=== PATIENT | female | born 1945 | race Caucasian/White ===

== ENCOUNTER 2017-01-11 09:53 | Emergency (ER) | payer MEDICARE ==
[2009-10-13 12:09] VITALS: BMI 22.0
== END 2017-01-11 11:59 | disposition home or self-care (01) ==
LOC: D.ER 09:53
DX: I10 Essential (primary) hypertension (principal)

== ENCOUNTER → 2017-01-15 14:39 | Outpatient (CLI) | payer MEDICARE ==
[2009-10-13 12:09] VITALS: BMI 22.0
== END | disposition home or self-care (01) ==
LOC: D.US 14:39
DX: N64.9 Disorder of breast, unspecified (principal)

== ENCOUNTER → 2017-02-06 14:21 | Outpatient (CLI) | payer MEDICARE ==
[2009-10-13 12:09] VITALS: BMI 22.0
== END | disposition home or self-care (01) ==
LOC: D.CT 14:21
DX: R51 Headache (principal)

== ENCOUNTER 2017-11-05 05:40 | Day surgery (SDC) | payer MEDICARE ==
[~2017-11-05] VITALS: Ht 172.7 cm; Wt 99.1 kg
--- NOTE | ~2017-11-05 | OP ---
PATIENT NAME: TIMOTHY MEDINA MEDICAL RECORD: [id number] :43 LOCATION:D.OPS ADMISSION DATE: SURGEON: EN CISNEROS MD DATE OF OPERATION: 11/05/2017 PREOPERATIVE DIAGNOSES: 1. Brito's esophagus. 2. Dysphagia. 3. History of autoimmune problems. 4. Melena. 5. History of colon polyps. POSTOPERATIVE DIAGNOSES: 1. Brito's esophagus. 2. Dysphagia. 3. History of autoimmune problems. 4. Melena. 5. History of colon polyps. 6. Panesophagitis, moderate with some exudate. 7. Moderately sized hiatal hernia. 8. Normal stomach otherwise. 9. Normal duodenum. 10. Bleeding after esophageal dilation with significant reflux into the oropharynx. We were concerned that she could not protect her airway and for this reason, we abandoned the colonoscopy. PROCEDURE: 1. Esophagogastroduodenoscopy with antral and distal esophageal biopsies. 2. Esophageal dilation through the catheter balloon to 54-Spanish. SURGEON: En Cisneros MD TOILET ATTENDANT: None. BLOOD LOSS: 50 cc. ANESTHESIA: Topical with IV sedation. The reason for the anesthesia staff being present during the procedure includes the need for airway manipulation, which was necessary during the procedure. The risks, possible complications, and alternatives to the procedure were explained to the patient. She elects to proceed. ENDOSCOPIC COURSE: The patient was conveyed to the endoscopy suite electively on 11/05/2017. A topical anesthetic was sprayed into the oropharynx. A bite block was inserted. IV sedation was induced. A gastroscope was inserted into the mouth. It was advanced easily into the hypopharynx. The esophagus was easily intubated as were the stomach and the duodenum. Upon withdrawal, retroflexed and angulus views were obtained. Antral biopsies were obtained. I then advanced a through the catheter balloon. I sequentially dilated the entire length of the esophagus to 54-Spanish. The balloon dilator was removed. I then re-endoscoped the patient's esophagus and stomach. There had been no evidence of false passage or perforation. There was significant bleeding, however. Distal esophageal biopsies were obtained at the Z-line due to the patient's OPERATIVE REPORT [id number] TIMOTHY MEDINA history of Brito esophagus. I then slowly withdrew the endoscope. I irrigated and aspirated blood clots. I then aspirated some additional blood in the oropharynx. We are setting up for the colonoscopy and I collaborated with the COMM[employer]ITY [employer] WORKER, Mervin Marrufo. He was worried that due to the amount of blood that was refluxing up into the oropharynx that she might develop an airway problem and might aspirate. He recommended that we discontinue the procedure and do the colonoscopy on another day. TRANSINT:[id number] Voice Confirmation ID: [id number] DOCUMENT ID: [id number] EN CISNEROS MD at 1022 CC: ANGELITA Garay MD [id number] DICTATION DATE: 11/05/17916 CALIBRATION CHECKER: 11/05/17 1150 [facility] 11/05/[address] [facility] [address] [place] [address]
[2017-11-05 06:19] LABS: BASOPHILS 0.6 % (0-2); EOSINOPHILS 4.8 % (0-7); HEMATOCRIT 46.1 % (36.0-48.0); HEMOGLOBIN 15.2 g/dL (12-16); IMMATURE GRANULOCYTES 0.2 % (0-5); LYMPHOCYTES 17.9 % (15-50); MCH 30.9 pg (26.0-34.0); MCV 93.7 fL (80.0-100.0); MEAN PLATELET VOLUME 10.3 fL (7.4-10.4); MONOCYTES 9.4 % (2-11); NEUTROPHILS 67.1 % (40-80); PLATELET COUNT 176 10x3/uL (130-400); RBC 4.92 10x6/uL (4.00-5.40); RDW 14.6 % (11.5-14.5); WBC 6.5 10x3/uL (4.8-10.8)
[2017-11-05 06:34] LABS: APTT 26.2 SECONDS (22.8-39.4); INR 0.96 (0.85-1.17); PROTIME 12.4 SECONDS (11.6-15.0)
[2017-11-05] MEDS ORDERED: KLONOPIN1 MG PO (06:34)
[2017-11-05] MEDS ORDERED: NEURONTIN 300300 MG PO (06:35)
[2017-11-05 06:36] LABS: ALBUMIN 3.6 g/dL (3.4-5.0); BILIRUBIN - TOTAL 0.72 mg/dL (0.2-1.3); CALCIUM 9.2 mg/dL (8.5-10.1); CARBON DIOXIDE 29.4 mmol/L (21.0-32.0); CREATININE - SERUM 0.8 mg/dL (0.6-1.3); POTASSIUM - SERUM 4.4 mmol/L (3.5-5.1); PROTEIN - SERUM 6.9 g/dL (6.4-8.2)
[2017-11-05] MEDS ORDERED: ARMOUR THYROID90 MG PO (06:38)
[2017-11-05 06:51] VITALS: Ht 172.7 cm; Wt 99.1 kg
== END 2017-11-05 13:15 | disposition home or self-care (01) ==
LOC: D.OPS 05:40
PROVIDERS: Anesthesiology
DX: K22.719 Barrett's esophagus with dysplasia, unspecified (principal); K44.9 Diaphragmatic hernia without obstruction or gangrene; K20.8 Other esophagitis

== ENCOUNTER → 2018-03-06 15:29 | Outpatient (CLI) | payer MEDICARE ==
[2017-11-05 06:51] VITALS: BMI 33.2
[~2018-03-06 15:29] MED LIST: ARMOUR THYROID90 MG PO; KLONOPIN1 MG PO; NEURONTIN 300300 MG PO
== END | disposition home or self-care (01) ==
LOC: D.MRI 15:29
DX: M54.5 Low back pain (principal)

== ENCOUNTER → 2020-06-21 10:49 | Outpatient (CLI) | payer MEDICARE ==
[2017-11-05 06:51] VITALS: BMI 33.2
--- NOTE | ~2020-06-21 | HEMODYNAMI ---
PATIENT:TIMOTHY MEDINA MEDICAL RECORD: [id number] : 43 LOCATION:[facility] ADMISSION DATE: 06/21/20 Generatedon:112:26 Patient name: TIMOTHY MEDINA Patient #: [id number] SSN: D OB: 1945 Date of study: 06/21/2020 Page: Of Hemodynamic Procedure Report Patient Data Patient Demographics Procedure consent was obtained First Name: TIMOTHY Gender: Female Last Name: CAROL : 1945 Middle Initial: N Age: 74 year(s) Patient #: [id number] Race: Unknown Additional ID: [id number] Contact details Address: [address] [place] [address] State: [place] City: [place] Zip code: [address] Past Medical History Allergies Allergen Reaction Date Comments Reported Percocet 06/21/2020 Admission Admission Data Admission Date: 06/21/2020 Admission Time: 10:49 Procedure Procedure Types Cath Procedure Peripheral Cath Diagnostic Procedure Miscellaneous Procedure Description Procedure Date Procedure Date: 06/21/2020 Procedure Start Time: 12:16 Procedure End Time: 12:25 Procedure Staff Name Function Kody Singer MD Performing Physician Christian Godinez RT Monitor JENNIFER GIBBONS Scrub Procedure Data Cath Procedure Fluoroscopy Diagnostic fluoroscopy Total fluoroscopy Time: 0.6 time: 0.6 min min Diagnostic fluoroscopy Total fluoroscopy dose: 40 dose: 40 mGy mGy Contrast Material Contrast Material Type Amount (ml) Isovue 200 6 Hemodynamics Rest Pre Cath Intra NCS Post Cath Procedure Log Time Note 11:58:33 Christian Godinez RT (R) (CV) sent for patient. Start room use. 11:58:34 Time tracking: Regular hours (M-F 7:00 - 5:00) 11:58:39 Patient received from Other to IR Alert and oriented. Tansferred to table in Supine position. 11:58:41 Signed procedure consent form obtained from patient. 11:58:41 Warm blankets applied, and miles hugger turned on for patient comfort. 11:58:42 Correct patient and procedure confirmed by team. 11:58:44 - 11:58:45 Pre-procedure instructions explained to patient. 11:58:46 Pre-op teaching completed and patient verbalized understanding. 12:00:03 Patient allergic to Percocet 12:00:07 Is patient on blood thinner?No 12:00:41 Left Hip was prepped with betadine and draped in sterile fashion. 12:00:54 - 12:05:26 SAFE-T PLUS MYELOGRAM TRAY opened to sterile field. 12:11:04 Physician paged 12:14:01 Physician arrived 12:14:49 --------ALL STOP TIME OUT------ 12:14:49 Final Timeout: patient, procedure, and site verified with staff and physician. All members of the team are in agreement. 12:14:52 Left groin site verified by team. 12:15:33 Procedure started. 12:15:33 Full Disclosure recording started 12:16:29 Local anesthetic to Left Hip with Lidocaine 1% by Kody Singer MD.INITIAL ACCESS ONLY 12:24:28 Procedure ended.(Physican Out) 12:24:40 Fluoroscopy time 00.60 minutes. 12::42 Flurop Dose total: 40 12::42 Fluoroscopy dose: 40 mGy 12:24:47 Contrast amount:Isovue 200 6ml. 12:24:52 Post procedure instruction explained to patient.Patient verbalizes understanding. ::33 Procedure and supply charges have been captured, reviewed, submitted an d are correct. ::38 Procedure ended. 12:25:38 Full Disclosure recording stopped 12:25:44 Patient transfered to Other with Wheelchair. Device Usage Item Name Manufacture Quantity Catalog Hospital Part Current Minimal Lot# / Number Charge Number Stock Stock Serial# Code SAFE-T Care[employer]usion 1 [id number] PLUS MYELOGRAM TRAY Signature Audit [place] Stage Time Signature Unsigned Intra-Procedure 06/21/2020 JENNIFER CORONEL RT 12:26:32 PM (R) [facility] [address] [place] [address]
== END | disposition home or self-care (01) ==
LOC: D.RAD 10:49
PROVIDERS: ATTEND Orthopaedic Surgery
DX: M16.0 Bilateral primary osteoarthritis of hip (principal)

== ENCOUNTER → 2020-06-23 11:03 | Outpatient (CLI) | payer MEDICARE ==
[2017-11-05 06:51] VITALS: BMI 33.2
--- NOTE | ~2020-06-23 | HEMODYNAMI ---
PATIENT:TIMOTHY MEDINA MEDICAL RECORD: [id number] : 43 LOCATION:[facility] ADMISSION DATE: 06/23/20 Generatedon:111:51 Patient name: TIMOTHY MEDINA Patient #: [id number] SSN: D OB: 1945 Date of study: 06/23/2020 Page: Of Hemodynamic Procedure Report Patient Data Patient Demographics Procedure consent was obtained First Name: TIMOTHY Gender: Female Last Name: CAROL : 1945 Middle Initial: N Age: 74 year(s) Patient #: [id number] Race: Unknown Additional ID: [id number] Contact details [address]: [address] [place] [address] State: [place] City: [place] Zip code: [address] Past Medical History Allergies Allergen Reaction Date Comments Reported Percocet 06/21/2020 Admission Admission Data Admission Date: 06/23/2020 Admission Time: 11:03 Procedure Procedure Types Cath Procedure Peripheral Cath Diagnostic Procedure Miscellaneous Procedure Description Procedure Date Procedure Date: 06/23/2020 Procedure Start Time: 11:41 Procedure Staff Name Function Carl Biggs MD Performing Physician Christian Godinez RT Monitor Procedure Data Cath Procedure Fluoroscopy Diagnostic fluoroscopy Total fluoroscopy Time: 0.6 time: 0.6 min min Diagnostic fluoroscopy Total fluoroscopy dose: 10 dose: 10 mGy mGy Contrast Material Contrast Material Type Amount (ml) Isovue 200 6 Hemodynamics Rest Pre Cath Intra NCS Post Cath Procedure Log Time Note 11:29:27 SAFE-T PLUS MYELOGRAM TRAY opened to sterile field. 11:36:35 Christian Godinez RT (R) (CV) sent for patient. Start room use. 11:36:46 Patient received from Other to IR Alert and oriented. Tansferred to table in Supine position. 11:36:48 Signed procedure consent form obtained from patient. 11:36:51 Pre-procedure instructions explained to patient. 11:36:52 Pre-op teaching completed and patient verbalized understanding. 11:36:59 Is patient on blood thinner?No 11:37:11 Right Hip was prepped with betadine and draped in sterile fashion. 11:37:24 Physician arrived 11:37:25 --------ALL STOP TIME OUT------ 11:37:25 Final Timeout: patient, procedure, and site verified with staff and physician. All members of the team are in agreement. 11:37:34 Left groin site verified by team. 11:37:39 Sedation plan: Local Anesthetic Medication:Lidocaine 11:41:46 Procedure started. 11:41:47 Full Disclosure recording started 11:41:56 Local anesthetic to Right Hip with Lidocaine 1% by Carl Biggs MD.INITIAL ACCESS ONLY 11:49:48 Procedure ended.(Physican Out) 11:50:04 Fluoroscopy time 00.60 minutes. 11:50:08 Fluoroscopy dose: 10 mGy 11:50:08 Flurop Dose total: 10 11:50:14 Contrast amount:Isovue 200 6ml. 11:50:33 BANDAIDE APPLIED SITE STABLE PT SENT HOME Device Usage Item Name Manufacture Quantity Catalog Hospital Part Current Minimal Lot# / Number Charge Number Stock Stock Serial# Code SAFE-T Care[employer]usion 1 [id number] PLUS MYELOGRAM TRAY Signature Audit [place] Stage Time Signature Unsigned Intra-Procedure 06/23/2020 Christian 11:51:01 AM Gretchen RT (R) (CV) [facility] [address] [place] [address]
== END | disposition home or self-care (01) ==
LOC: D.RAD 11:03
PROVIDERS: ATTEND Orthopaedic Surgery
DX: M16.0 Bilateral primary osteoarthritis of hip (principal)